=== PATIENT | female | born 1985 | race Caucasian/White ===

== ENCOUNTER 2019-04-17 05:14 | Inpatient (IN) ==
[2019-04-17] MEDS ORDERED: SODIUM CHLORIDE 0.9% 1000ML 2,000 ML IV ONE (05:27)
[2019-04-17] MEDS ORDERED: LORazepam 2 MG/4 ML VIAL IV STA (05:27)
[2019-04-17 06:05] LABS: Basophils # (auto) 0.01 K/uL (0-0.2); Basophils % (auto) 0.1 %; Hematocrit (blood only) 39.3 % (37-47); Hemoglobin 13.5 g/dL (12.0-16.0); Immature Granulocytes # (auto) 0.03 K/uL (0.00-0.02); Immature Granulocytes % (auto) 0.2 %; Lymphocytes # (auto) 0.52 K/uL (1.2-3.4); Lymphocytes % (auto) 3.5 %; Mean Corpuscular Hgb Conc 34.4 g/dL (32-36); Mean Corpuscular Volume 84.5 fL (80-100); Mean Platelet Volume 9.3 fL (7.4-10.4); Monocytes # (auto) 0.33 K/uL (0.11-0.59); Monocytes % (auto) 2.2 %; Neutrophils # (auto) 13.87 K/uL (1.4-6.5); Platelet Count 296 K/uL (130-400); RDW Standard Deviation 43.1 fL (36.4-46.3); Red Blood Count 4.65 M/uL (4.2-5.4); White Blood Count 14.76 K/uL (4.8-10.8)
[2019-04-17] MEDS ORDERED: KETOROLAC 30 MG/ML VIAL IV STA (06:11)
[2019-04-17 06:23] LABS: Alanine Aminotransferase 30 U/L (12-78); Albumin Level 3.6 gm/dl (3.4-5.0); Aspartate Aminotransferase 23 U/L (15-37); BUN Creatinine Ratio 3.8 (10-20); Bilirubin Direct < 0.1 mg/dl (0-0.2); Blood Urea Nitrogen 3 mg/dl (7-18); Calcium 8.9 mg/dl (8.5-10.1); Carbon Dioxide 22 mmol/L (21-32); Chloride 108 mmol/L (98-107); Creatinine Clr Calc Pharmacy 107.7 ml/min; Est GFR (African American) 103.6; Est GFR (Non-African American) 89.4; Glucose 107 mg/dl (70-99); Magnesium 1.8 mg/dl (1.8-2.4); Potassium 3.2 mmol/L (3.5-5.1); Sodium 139 mmol/L (136-145)
[2019-04-17 06:28] LABS: Alkaline Phosphatase 93 U/L (45-117); Bilirubin,Total 0.2 mg/dl (0.2-1); Creatine Kinase 134 U/L (26-192); Total Protein 7.8 gm/dl (6.4-8.2); Troponin I < 0.015 ng/ml (0-0.045)
--- NOTE | 2019-04-17 06:29 | XRay Report ---
XR chest 1V portable CLINICAL HISTORY: seizure, ams COMPARISON STUDY: 02/22/2013 FINDINGS: The cardiac and mediastinal contours are normal. There is no evidence of focal pulmonary co nsolidation. There is no evidence of failure. No pleural effusions are visualized.[ IMPRESSION: No active disease in the chest. ACT 112: Negative or not required by law. Electronically signed by: Billy Villar M.D. 04/17/2019 6:27 AM
--- NOTE | 2019-04-17 06:37 | CT Scan Report ---
CT OF THE HEAD WITHOUT CONTRAST CLINICAL HISTORY: seizure like activity COMPARISON STUDY: No previous studies for comparison. CT DOSE: 614.27 mGy.cm TECHNIQUE: Helical axial images of the head were obtained without IV contrast. Automated exposure con trol was utilized for the study. A dose lowering technique was utilized adhering to the principles o f ALARA. FINDINGS: No acute intracranial hemorrhage, midline shift or mass effect is present. The ventricular system is unremarkable. The basilar cisterns are patent. No extra-axial collections are present. Ther e are no findings to suggest acute dural sinus thrombosis or acute territorial infarct. No significan t calvarial abnormalities are present. Visualized portions of the sinuses and mastoid air cells are c lear. IMPRESSION: No acute intracranial findings. ACT 112: Negative or not required by law. Electronically signed by: Lorenzo Wright M.D. 04/17/2019 6:36 AM
[2019-04-17] MEDS ORDERED: DEXTROSE 5% IV STA (06:42)
[2019-04-17] MEDS ORDERED: LEVETIRACETAM IV STA (06:42)
[2019-04-17 06:45] LABS: Pregnancy Test, Serum Negative (Negative)
[2019-04-17 06:49] LABS: Appearance Urine Cloudy (Clear); Bacteria Urine Automated Negative (Negative); Bilirubin Urine Negative (Negative); Blood Urine Negative (Negative); Color Urine Yellow; Epithelial Cell Urine Auto >30 /lpf (0-5); Glucose Urine UA Negative (Negative); Ketones Urine Trace (Negative); Leukocyte Esterase Urine Negative (Negative); Nitrite Urine Negative (Negative); Protein Urine Negative (Negative); RBC Urine Automated 0-4 /hpf (0-4); Specific Gravity Urine 1.026 (1.000-1.030); Urobilinogen Urine Negative (Negative)
--- NOTE | 2019-04-17 07:17 | Emergency Department Note ---
Entered by Igor Keller acting as a scribe for ED Provider Note Name: Batsheva Estrada Age: 33 Arrives Via: EMS Informant: Nurse, patient CC: Seizure-like activity HPI: The patient is a 33 year old female who presents to the emergency department with complaints of three episodes of seizure-like activity occurring this morning. Per nurse, the patient had a seizure-like episode at [facility]. She states that the patient was alert and oriented when EMS arrived, and the patient refused medical treatment. She notes that the patient then went back to her apartment, turned on all the lights, and then had another episode of seizure-like activity. She reports that this episode lasted for ten minutes. She states that the patient was confused when EMS arrived. She notes that EMS put an IV in, and then the patient had another episode of seizure-like activity. She reports that the patient has no prior seizure history, and she states that the patient is seventeen months clean from heroin. The patient notes that she hurt her left arm when she pulled the IV out. She denies any drug use. HPI limited secondary to AMS. ROS: ROS limited secondary to AMS. Past Medical History: UTI, heroin use Past Surgical History: None Family History: None Social History: Former heroin user Home Medications: Gabapentin Allergies: Diphenhydramine, Penicillin, codeine. Physical: Vitals: BP 128/71, Pulse 113, Resp 23, Temp 98.2 F, O2 Sat 95 Exam: GENERAL: Patient is well appearing and in no acute distress. EYES: No scleral icterus, unremarkable pupils. ENT: Mucous membranes moist, no nasal congestion. NECK: No masses appreciated, no meningismus, trachea is midline. No nuchal rigidity or pain moving neck around. RESPIRATORY: No dyspnea. Clear to auscultation and equal bilaterally. No wheeze, no rhonchi. CARDIOVASCULAR: Regular rhythm and tachycardic. No murmurs, rubs, gallops appreciated. GASTROINTESTINAL: Abdomen soft, non-tender, no peritonitis. Bowel sounds positive. No masses appreciated. BACK: No midline tenderness, no CVA tenderness EXTREMITIES: Normal motion all extremities, no cyanosis, no edema. Old track crump to left AC of arm. NEUROLOGIC: Alert, no acute motor or sensory deficits, no focal weakness, cranial nerves grossly intact. Awake, interactive, with bizarre answers, repetitive questioning at times. SKIN: No rash, no jaundice, no diaphoresis. ED Course: Prior Medical Record, Triage/Nursing Notes, Medications, Allergies reviewed by Me 0527: The patient was evaluated in room C3. A complete history and physical exam was performed. 0610: I reevaluated and updated the patient. She is much more alert and awake. She notes a history of a seizure several years ago; however, she was never formally diagnosed and does not take any seizure medication. She states that she has a moderate headache with photophobia. She denies any neck stiffness, recent fever, and head trauma. She also denies any stimulant use or excessive exhaustion. 0637: I discussed the patient's case with SIDRA Peralta. He suggests admission if the patient is willing. He advises loading the patient with Keppra 500 TID. If the patient is willing to be admitted he suggests obtaining and MRI and EEG. 0645: I rechecked the patient. She states that her headache is improving. She is agreeable to hospitalization for further workup. 0705: Upon reevaluation, the patient is stable. I discussed the findings and the treatment plan with the patient. She expresses agreement and understanding. I spoke with [facility]. She will be evaluated for further management. Vital Signs: reviewed and remarkable for tachy Labs: Reviewed and remarkable for mild leukocytosis Interventions: saline lock, nss bolus 2 L IV, ativan 2mg IV, Keppra 1500mg IV, Toradol 30mg IV Imaging: CHEST X-RAY: X ray results are stated below per my interpretation: Chest: 1 view: No infiltrate, no effusion, normal cardiac border. Radiology results as stated below per my review and the radiologist's interpretation: CT HEAD: No acute intracranial hemorrhage, extra-axial fluid collection, edema, mass effect, or acute cortical infarct. No fracture. The paranasal sinuses and mastoid air cells are clear. Radiologist: Yimi Grullon MD. EKG: Per My Interpretation: Indication AMS: ST 111 bpm, qtc 495. No Ectopy. No Ischemia. No previous EKG for comparison Consults: 0637: I discussed the patient's case with SIDRA Peralta. He suggests admission if the patient is willing. He advises loading the patient with Keppra 500 TID. If the patient is willing to be admitted he suggests obtaining and MRI and EEG. 0705: I reviewed the patient's case with [facility] hospitalist who will evaluate further. Blood pressure: Normal. No Referral necessary Disposition: Hospitalization Differential diagnosis includes etiologies such as infection, hypoglycemia, electrolyte abnormalities, cardiac sources, intracerebral event, trauma, toxicologic, neurologic, as well as others were entertained. Medical Decision Makin y old female with history of previous drug addiction, chronic pain and very remote single seizure. She is on gabapentin only medications. She has had 3 seizures over the last few hours, one of which witnessed by EMS and on arrival here she is post ictal pulling at lines. Given 2mg IV ativan to help with seizure blockade and sent to CT revealing no acute findings. Labs with mild wbc elevation likely secondary to multiple seizures. As she awoke she notes headache which improved with Toradol. She does not have fever no findings of meningitis by examination. I do not feel emergent LP indicated at this time. She was given IV fluids for hydration. After discussion with neuro will bring in to hospital and she was given IV Keppra. Patient comfortable with this plan. Impression: Seizure Guillermo Marcano MD The scribe's documentation has been prepared under my direction and personally reviewed by me in its entirety. I confirm that the note above accurately reflects all work, treatment, procedures, and medical decision making performed by me. 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 [employer] Other Information That Helps Us Care for You: No Feels Safe at Home: Yes Safety Concerns: Feels Safe At This Time Smoking Status: Current every day smoker Tobacco Type: cigarettes ; packs per day: 0.5 ; Cigarettes Per Day: 10 ; Do You Dip or Chew Tobacco: No ; Second Hand Exposure: No ; Tobacco Cessation Education Requested by Patient: No Hx Alcohol Use: Yes (4-5 beers once a week) Hx Substance Use: Yes substance use type: heroin Substance Use Type Other:: history Last Used Substance: Unknown Last Used Substance Other:: Marijuana - reports recent use Results & Data Vital Signs Vital Signs - 24 hr 04/17/19 05:23 04/17/19 05:30 04/17/19 06:00 Temperature 36.8 C Temperature Source Oral Pulse Rate 113 H 110 H 98 H Pulse Rate from SpO2 Sensor 111 H 99 H Respiratory Rate 23 18 19 Respiratory Depth Normal Blood Pressure 128/71 124/74 104/62 Blood Pressure Mean 90 83 73 Pulse Oximetry 95 92 93 Oxygen Delivery Method Room Air Room Air Room Air Sepsis Recent Fever Within 48 Hours No Sepsis New/Unexplained Change in Mental Status No Sepsis Action Taken by Nursing No Action Required 04/17/19 06:30 04/17/19 07:00 04/17/19 07:01 Temperature Temperature Source Pulse Rate 91 H 88 87 Pulse Rate from SpO2 Sensor 91 H 88 88 Respiratory Rate 18 17 15 Respiratory Depth Blood Pressure 121/78 125/78 Blood Pressure Mean 99 92 Pulse Oximetry 97 98 98 Oxygen Delivery Method Room Air Room Air Room Air Sepsis Recent Fever Within 48 Hours Sepsis New/Unexplained Change in Mental Status Sepsis Action Taken by Nursing 04/17/19 07:30 04/17/19 07:31 04/17/19 08:00 Temperature Temperature Source Pulse Rate 92 H 88 92 H Pulse Rate from SpO2 Sensor 91 H 88 92 H Respiratory Rate 18 19 19 Respiratory Depth Blood Pressure 94/69 L 124/81 Blood Pressure Mean 75 106 Pulse Oximetry 98 100 97 Oxygen Delivery Method Room Air Room Air Room Air Sepsis Recent Fever Within 48 Hours Sepsis New/Unexplained Change in Mental Status Sepsis Action Taken by Nursing 04/17/19 08:01 Temperature Temperature Source Pulse Rate 91 H Pulse Rate from SpO2 Sensor 90 Respiratory Rate 17 Respiratory Depth Blood Pressure Blood Pressure Mean Pulse Oximetry 97 Oxygen Delivery Method Room Air Sepsis Recent Fever Within 48 Hours Sepsis New/Unexplained Change in Mental Status Sepsis Action Taken by Longterm Medications Current Medication List: was personally reviewed by me Laboratory Data Attestation: I reviewed the patient's lab results. Result diagrams: 04/17/19 05:49 04/17/19 05:49 Lab Results 04/17/19 04/17/19 04/17/19 Range/Units 05:48 05:48 05:49 WBC 14.76 H (4.8-10.8) K/uL RBC 4.65 (4.2-5.4) M/uL Hgb 13.5 (12.0-16.0) g/dL Hct 39.3 (37-47) % MCV 84.5 (80-100) fL MCH 29.0 (25-34) pg MCHC 34.4 (32-36) g/dL RDW Std Deviation 43.1 (36.4-46.3) fL RDW Coeff of Mary Anne 14.0 (11.5-14.5) % Plt Count 296 (130-400) K/uL MPV 9.3 (7.4-10.4) fL Immature Gran % (Auto) 0.2 % Neut % (Auto) 94.0 % Lymph % (Auto) 3.5 % [place] % (Auto) 2.2 % Eos % (Auto) 0.0 % Baso % (Auto) 0.1 % Immature Gran # (Auto) 0.03 H (0.00-0.02) K/uL Neut # (Auto) 13.87 H (1.4-6.5) K/uL Lymph # (Auto) 0.52 L (1.2-3.4) K/uL [place] # (Auto) 0.33 (0.11-0.59) K/uL Eos # (Auto) 0.00 (0-0.5) K/uL Baso # (Auto) 0.01 (0-0.2) K/uL Sodium (136-145) mmol/L Potassium (3.5-5.1) mmol/L Chloride (98-107) mmol/L Carbon Dioxide (21-32) mmol/L Anion Gap (3-11) BUN (7-18) mg/dl Creatinine (0.6-1.2) mg/dl Est Cr Clr Drug Dosing ml/min Est GFR ( Amer) Est GFR (Non-Af Amer) BUN/Creatinine Ratio (10-20) Glucose (70-99) mg/dl Calcium (8.5-10.1) mg/dl Magnesium (1.8-2.4) mg/dl Total Bilirubin (0.2-1) mg/dl Direct Bilirubin (0-0.2) mg/dl AST (15-37) U/L ALT (12-78) U/L Alkaline Phosphatase (45-117) U/L Total Creatine Kinase (26-192) U/L Troponin I (0-0.045) ng/ml Total Protein (6.4-8.2) gm/dl Albumin (3.4-5.0) gm/dl TSH (0.300-4.500) uIu/ml HCG, Qual (Negative) Urine Color Yellow Urine Appearance Cloudy A (Clear) Urine pH 5.0 (4.5-7.5) Ur Specific [place] 1.026 (1.000-1.030) Urine Protein Negative (Negative) Urine Glucose (UA) Negative (Negative) Urine Ketones Trace H (Negative) Urine Blood Negative (Negative) Urine Nitrite Negative (Negative) Urine Bilirubin Negative (Negative) Urine Urobilinogen Negative (Negative) Ur Leukocyte Esterase Negative (Negative) Urine WBC (Auto) 1-5 (0-5) /hpf Urine RBC (Auto) 0-4 (0-4) /hpf U Hyaline Cast (Auto) 1-5 (0-5) /lpf U Epithel Cells (Auto) >30 H (0-5) /lpf Urine Bacteria (Auto) Negative (Negative) Urine Opiates Screen Neg (Neg) Ur Methadone, Qual Neg (Neg) Urine Barbiturates Neg (Neg) Ur Phencyclidine (PCP) Neg (Neg) U Amphetamin/Meth Scrn Neg (Neg) MDMA (Ecstasy) Screen Neg (Neg) U Benzodiazepines Scrn Neg (Neg) Ur Cocaine Metabolite Neg (Neg) U Marijuana (THC) Screen Pos H (Neg) Ethyl Alcohol mg/dL (0-3) mg/dl 04/17/19 04/17/19 04/17/19 Range/Units 05:49 05:49 05:49 WBC (4.8-10.8) K/uL RBC (4.2-5.4) M/uL Hgb (12.0-16.0) g/dL Hct (37-47) % MCV (80-100) fL MCH (25-34) pg MCHC (32-36) g/dL RDW Std Deviation (36.4-46.3) fL RDW Coeff of Mary Anne (11.5-14.5) % Plt Count (130-400) K/uL MPV (7.4-10.4) fL Immature Gran % (Auto) % Neut % (Auto) % Lymph % (Auto) % [place] % (Auto) % Eos % (Auto) % Baso % (Auto) % Immature Gran # (Auto) (0.00-0.02) K/uL Neut # (Auto) (1.4-6.5) K/uL Lymph # (Auto) (1.2-3.4) K/uL [place] # (Auto) (0.11-0.59) K/uL Eos # (Auto) (0-0.5) K/uL Baso # (Auto) (0-0.2) K/uL Sodium 139 (136-145) mmol/L Potassium 3.2 L (3.5-5.1) mmol/L Chloride 108 H (98-107) mmol/L Carbon Dioxide 22 (21-32) mmol/L Anion Gap 9.0 (3-11) BUN 3 L (7-18) mg/dl Creatinine 0.86 (0.6-1.2) mg/dl Est Cr Clr Drug Dosing 107.7 ml/min Est GFR ( Amer) 103.6 Est GFR (Non-Af Amer) 89.4 BUN/Creatinine Ratio 3.8 L (10-20) Glucose 107 H (70-99) mg/dl Calcium 8.9 (8.5-10.1) mg/dl Magnesium 1.8 (1.8-2.4) mg/dl Total Bilirubin 0.2 (0.2-1) mg/dl Direct Bilirubin < 0.1 (0-0.2) mg/dl AST 23 (15-37) U/L ALT 30 (12-78) U/L Alkaline Phosphatase 93 (45-117) U/L Total Creatine Kinase 134 (26-192) U/L Troponin I < 0.015 (0-0.045) ng/ml Total Protein 7.8 (6.4-8.2) gm/dl Albumin 3.6 (3.4-5.0) gm/dl TSH (0.300-4.500) uIu/ml HCG, Qual Negative (Negative) Urine Color Urine Appearance (Clear) Urine pH (4.5-7.5) Ur Specific [place] (1.000-1.030) Urine Protein (Negative) Urine Glucose (UA) (Negative) Urine Ketones (Negative) Urine Blood (Negative) Urine Nitrite (Negative) Urine Bilirubin (Negative) Urine Urobilinogen (Negative) Ur Leukocyte Esterase (Negative) Urine WBC (Auto) (0-5) /hpf Urine RBC (Auto) (0-4) /hpf U Hyaline Cast (Auto) (0-5) /lpf U Epithel Cells (Auto) (0-5) /lpf Urine Bacteria (Auto) (Negative) Urine Opiates Screen (Neg) Ur Methadone, Qual (Neg) Urine Barbiturates (Neg) Ur Phencyclidine (PCP) (Neg) U Amphetamin/Meth Scrn (Neg) MDMA (Ecstasy) Screen (Neg) U Benzodiazepines Scrn (Neg) Ur Cocaine Metabolite (Neg) U Marijuana (THC) Screen (Neg) Ethyl Alcohol mg/dL < 3.0 (0-3) mg/dl 04/17/19 Range/Units 05:49 WBC (4.8-10.8) K/uL RBC (4.2-5.4) M/uL Hgb (12.0-16.0) g/dL Hct (37-47) % MCV (80-100) fL MCH (25-34) pg MCHC (32-36) g/dL RDW Std Deviation (36.4-46.3) fL RDW Coeff of Mary Anne (11.5-14.5) % Plt Count (130-400) K/uL MPV (7.4-10.4) fL Immature Gran % (Auto) % Neut % (Auto) % Lymph % (Auto) % [place] % (Auto) % Eos % (Auto) % Baso % (Auto) % Immature Gran # (Auto) (0.00-0.02) K/uL Neut # (Auto) (1.4-6.5) K/uL Lymph # (Auto) (1.2-3.4) K/uL [place] # (Auto) (0.11-0.59) K/uL Eos # (Auto) (0-0.5) K/uL Baso # (Auto) (0-0.2) K/uL Sodium (136-145) mmol/L Potassium (3.5-5.1) mmol/L Chloride (98-107) mmol/L Carbon Dioxide (21-32) mmol/L Anion Gap (3-11) BUN (7-18) mg/dl Creatinine (0.6-1.2) mg/dl Est Cr Clr Drug Dosing ml/min Est GFR ( Amer) Est GFR (Non-Af Amer) BUN/Creatinine Ratio (10-20) Glucose (70-99) mg/dl Calcium (8.5-10.1) mg/dl Magnesium (1.8-2.4) mg/dl Total Bilirubin (0.2-1) mg/dl Direct Bilirubin (0-0.2) mg/dl AST (15-37) U/L ALT (12-78) U/L Alkaline Phosphatase (45-117) U/L Total Creatine Kinase (26-192) U/L Troponin I (0-0.045) ng/ml Total Protein (6.4-8.2) gm/dl Albumin (3.4-5.0) gm/dl TSH 0.833 (0.300-4.500) uIu/ml HCG, Qual (Negative) Urine Color Urine Appearance (Clear) Urine pH (4.5-7.5) Ur Specific [place] (1.000-1.030) Urine Protein (Negative) Urine Glucose (UA) (Negative) Urine Ketones (Negative) Urine Blood (Negative) Urine Nitrite (Negative) Urine Bilirubin (Negative) Urine Urobilinogen (Negative) Ur Leukocyte Esterase (Negative) Urine WBC (Auto) (0-5) /hpf Urine RBC (Auto) (0-4) /hpf U Hyaline Cast (Auto) (0-5) /lpf U Epithel Cells (Auto) (0-5) /lpf Urine Bacteria (Auto) (Negative) Urine Opiates Screen (Neg) Ur Methadone, Qual (Neg) Urine Barbiturates (Neg) Ur Phencyclidine (PCP) (Neg) U Amphetamin/Meth Scrn (Neg) MDMA (Ecstasy) Screen (Neg) U Benzodiazepines Scrn (Neg) Ur Cocaine Metabolite (Neg) U Marijuana (THC) Screen (Neg) Ethyl Alcohol mg/dL (0-3) mg/dl Administered Medications Gabapentin (Neurontin) 900 mg PO TID JOSSELYN Stop: 05/17/19 11:59 Last Admin: 04/17/19 21:19 Dose: 900 mg Documented by: [id number] Admin: 04/17/19 12:37 Dose: 900 mg Documented by: [id number] Levetiracetam (Keppra) 500 mg PO TID JOSSELYN Stop: 05/17/19 11:59 Last Admin: 04/17/19 21:19 Dose: 500 mg Documented by: [id number] Admin: 04/17/19 12:37 Dose: 500 mg Documented by: [id number] Mirtazapine (Remeron) 30 mg PO HS JOSSELYN Stop: 05/17/19 20:59 Last Admin: 04/17/19 21:00 Dose: 30 mg Documented by: [id number] Discontinued Medications Acetaminophen (Tylenol) 1,000 mg PO NOW STA Stop: 04/17/19 07:32 Last Admin: 04/17/19 07:39 Dose: 1,000 mg Documented by: [id number] Sodium Chloride (Nss 1000ml) 2,000 mls @ 999 mls/hr IV .Q2H1M ONE Stop: 04/17/19 07:27 Last Infusion: 04/17/19 08:43 Dose: 0 mls/hr Documented by: [id number] Admin: 04/17/19 05:57 Dose: 999 mls/hr Documented by: [id number] Lorazepam (Ativan) 2 mg in 4 mls @ 4 mls/min IV NOW STA Stop: 04/17/19 05:28 Last Admin: 04/17/19 05:56 Dose: 4 mls/min Documented by: [id number] Levetiracetam 1,500 mg/ (Dextrose) 265 mls @ 999 mls/hr IV NOW STA Stop: 04/17/19 06:58 Last Infusion: 04/17/19 07:56 Dose: 0 mls/hr Documented by: [id number] Admin: 04/17/19 07:25 Dose: 999 mls/hr Documented by: [id number] Sodium Chloride (Nss 1000ml) 1,000 mls @ 125 mls/hr IV .Q8H JOSSELYN Stop: 04/17/19 17:44 Last Infusion: 04/17/19 18:37 Dose: 0 mls/hr Documented by: [id number] Admin: 04/17/19 10:28 Dose: 125 mls/hr Documented by: [id number] Ibuprofen (Advil) 400 mg PO NOW ONE Stop: 04/17/19 10:07 Last Admin: 04/17/19 10:28 Dose: 400 mg Documented by: [id number] Ketorolac Tromethamine (Toradol) 30 mg IV NOW STA Stop: 04/17/19 06:12 Last Admin: 04/17/19 06:26 Dose: 30 mg Documented by: [id number] Potassium Chloride (Klor-Con M20) 40 meq PO NOW STA Stop: 04/17/19 08:43 Last Admin: 04/17/19 09:21 Dose: 40 meq Documented by: [id number] Potassium Chloride (Klor-Con M20) 20 meq PO ONE ONE Stop: 04/17/19 17:01 Last Admin: 04/17/19 16:50 Dose: 20 meq Documented by: [id number] Discharge Plan Visit Data *Final* Discharge Date/Time: 04/17/19 08:53 Chief Complaint: Seizure Stated Complaint: SEIZURE ED Provider: Guillermo Marcano Discharge Problem: Seizure Patient Disposition: Admitted As Inpatient Discharge Instructions Interventions: ED Discharge Assessment Last Done: 04/17/19 08:53 The scribe's documentation has been prepared under my direction and personally reviewed by me in its entirety. I confirm that the note above accurately refle cts all work, treatment, procedures, and medical decision making performed by me.
[2019-04-17 07:20] LABS: Amphetamines+Metham, Urine Neg (Neg); Barbiturates, Urine Neg (Neg); Benzodiazepine, Urine Neg (Neg); Cocaine, Urine Neg (Neg); MDMA (Ecstacy), Urine Neg (Neg); Methadone, Urine Neg (Neg); Opiate, Urine Neg (Neg); Phencyclidine, Urine Neg (Neg)
[2019-04-17] MEDS ORDERED: ACETAMINOPHEN 500 MG TAB PO STA (07:31)
[2019-04-17] MEDS ORDERED: POTASSIUM CHLORIDE 20 MEQ TABCR PO STA (08:42)
--- NOTE | 2019-04-17 08:42 | History & Physical Report ---
Date of Service April 17, 2019 Assessment & Plan (1) Seizure: Pt is 33 y/o F with PMH anxiety, depression, PTSD, prior h/o heroin abuse, tobacco use presented to ER with reported seizure like activity occurring at work and at home. Upon ER arrival pt confused and does become more alert and oriented throughout ER course. Pt admits to marijuana use, denies other recent drug abuse. Denies h/o seizure In ER pt afebrile, P: 113 down to 91, R: 23 down to 18, BP: 128/71, 95% on RA. WBC: 14, K: 3.2, glucose: 107, CK: 134, negative HCG. Urine drug screen +marijuana. 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 Unable to complete MRI brain -Neurology consult, ER spoke to Dr Joseph who suggested load with Keppra, Keppra 500mg TID, MRI, EEG -CBC, BMP in am (2) Hypokalemia: K: 3.2 -Replace and monitor (3) Anxiety and depression: (4) PTSD (post-traumatic stress disorder): -Continue mirtazapine, gabapentin for now (5) Tobacco use: -Smoking cessation encouraged -Denies nicotine patch at this time DVT Prophylaxis -low risk - Ambulate Follows with Gilda Willoughby PA-C for routine care Pt was seen and care coordinated with Dr Woods. See addendum History of Present Illness Chief Complaint: Seizure like activity Primary Care Provider: Rcihard Blanco MD Pt is 33 y/o F with PMH anxiety, depression, PTSD, prior h/o heroin abuse, tobacco use presented to ER with c/o seizure. Majority of history obtained from ER staff. Reported that pt had seizure like activity of unknown duration at work last night and at that time refused EMS transport. Reported pt had another ep isode of seizure like activity at home and friend reported tonic clonic like activity for approx 10 minutes. EMS reported pt was post ictal on arrival. Upon arrival to ER pt confused and has become more alert and answering some questions throughout ER course. Pt admits to marijuana use, denies other drug use. According to out patient records pt with h/o heroin abuse in past and recently released from incarceration in 01/2019. Currently pt reports feels tired but denies any other current complaints. Reports her ARANDA that she had reported initially in ER has resolved. Denies history seizures in past. Pt states last took her gabapentin yesterday morning and last had mirtazapine on 04/15/19. Denies misuse or abuse of her prescription medications. Denies fever/chills, diaphoresis, N/V/D/C, dizziness, vision changes, neck pain, CP, SOB, orthopnea, palpitations, cough, sore throat, choking, otalgia, rhinorrhea, abdominal pain, paresthesias, weakness, extremity weakness, extremity edema, rashes, urinary symptoms. Allergies Allergy/AdvReac Type Severity Reaction Status Date / Time diphenhydramine Allergy Severe ANAPHYLAXIS Verified 04/17/19 05:32 Penicillins Allergy Intermediate HIVES Verified 04/17/19 05:32 codeine AdvReac Mild VOMITING Verified 04/17/19 05:32 Home Medications Home Medications Medication Instructions Recorded Confirmed Type gabapentin 1,200 mg PO TID 04/17/19 04/17/19 History mirtazapine 30 mg PO HS 04/17/19 04/17/19 History Past Med/Surg History Medical History Anxiety and depression Breast mass, right (Acute) Heroin addiction (Acute) (Resolved) 2008 PTSD (post-traumatic stress disorder) Tobacco use Surgical History History of delivery Family History Mother Cervical cancer Social History Preferred Language: Kyrgyz Communication Ability: Effective Produce Service Team Member Required: No Beliefs That Will Affect Care: None Current Living Situation: Other Current Living Situation Comment: Roommate current occupational status: employed 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 [employer] Other Information That Helps Us Care for You: No Feels Safe at Home: Yes Safety Concerns: Feels Safe At This Time Smoking Status: Current every day smoker Tobacco Type: cigarettes ; packs per day: 0.5 ; Cigarettes Per Day: 10 ; Do You Dip or Chew Tobacco: No ; Second Hand Exposure: No ; Tobacco Cessation Education Requested by Patient: No Hx Alcohol Use: Yes (4-5 beers once a week) Hx Substance Use: Yes substance use type: heroin Substance Use Type Other:: history Last Used Substance: Unknown Last Used Substance Other:: Marijuana - reports recent use Review of Systems Review of Systems: All systems reviewed & are unremarkable except as noted in HPI & below Physical Exam Physical Exam: General: no acute distress, overweight Head: normocephalic, atraumatic Eyes: PERRL, EOM's intact, conjunctiva non-injected, anicteric ENT: normal inspection external ears, nose, mucous membranes mildly dry Neck: supple, trachea midline, non-tender Lungs: clear, no respiratory distress, no wheezing/rhonchi/rales CV: RRR, no murmur, no pretibial edema Abd: normal BS, soft, non-tender Ext: no cyanosis, no calf tenderness Neuro: A&O x 3, no focal deficits noted, somewhat flat affect Skin: warm, dry Results & Data Vital Signs (Past 12 Hours) Vital Signs Temp Pulse Resp BP Pulse Ox 04/17/19 06:30 91 H 18 121/78 97 04/17/19 06:00 98 H 19 104/62 93 04/17/19 05:30 110 H 18 124/74 92 04/17/19 05:23 36.8 C 113 H 23 128/71 95 Laboratory Results Short CBC 04/17/19 Range/Units 05:49 WBC 14.76 H (4.8-10.8) K/uL Hgb 13.5 (12.0-16.0) g/dL Hct 39.3 (37-47) % Plt Count 296 (130-400) K/uL BMP 04/17/19 05:49 Sodium 139 Potassium 3.2 L Chloride 108 H Carbon Dioxide 22 BUN 3 L Creatinine 0.86 Glucose 107 H Calcium 8.9 Cardiac Enzymes 04/17/19 Range/Units 05:49 Total Creatine Kinase 134 (26-192) U/L Troponin I < 0.015 (0-0.045) ng/ml Liver Function 04/17/19 Range/Units 05:49 Total Bilirubin 0.2 (0.2-1) mg/dl Direct Bilirubin < 0.1 (0-0.2) mg/dl AST 23 (15-37) U/L ALT 30 (12-78) U/L Alkaline Phosphatase 93 (45-117) U/L Albumin 3.6 (3.4-5.0) gm/dl Urine 04/17/19 Range/Units 05:48 Urine Color Yellow Urine Appearance Cloudy A (Clear) Urine pH 5.0 (4.5-7.5) Ur Specific Tiger 1.026 (1.000-1.030) Urine Protein Negative (Negative) Urine Glucose (UA) Negative (Negative) Diagnostic Findings CXR: IMPRESSION: No active disease in the chest. CT HEAD: IMPRESSION: No acute intracranial findings. ECG Rate (beats per minute): 111 Rhythm: sinus tachycardia Supervising Physician Co-Signing Physician Notes I performed a history and physical examination of the patient on 04/17/2019. I have discussed the patient's management with the advanced practitioner. Please refer to the PA-C note for the documented findings and plan of care. The patient has presented with an episode of what is thought to be seizure. The patient does not remember this event. Details as above. On my exam she was having a headache, stated that she was nauseous and that light was bothering her. This sounded like a migraine headache. He does not have any history of such. Continue Keppra and decrease gabapentin as recommended by neurology. Unable to obtain MRI because of the metal stud on her face which she states is permanent and she cannot remove it.
--- OUTSIDE RECORDS SUMMARY | 2019-04-17 09:37 | External Medical Summary | Continuity of Care Document ---
:1985 Author Name Marcella Sharma, Provider Address Unavailable Unavailable , Care Team Providers Name Role Phone Marisol Quijano [email or web address] TASIA [email or web address] Unavailable Unavailable Problems Active medical history not documented Allergies and Adverse Reactions Allergy history not documented Medications Medications not documented Procedures Procedures not documented Immunizations Immunizations not documented Plan of Treatment Planned Observations Planned Goals not documented Results No Known Results Results not documented
--- NOTE | 2019-04-17 09:38 | Neurology Consultation ---
Date of Consultation April 17, 2019 Assessment & Plan (1) Seizure: (2) Anxiety and depression: (3) Heroin addiction: Patient has had 3 seizures over several hours earlier today likely generalized tonic-clonic in nature. She may have bit her tongue but did not have urinary incontinence. She has sore in general and somewhat sleepy although she had Ativan and levetiracetam. Her white count is elevated which could correlate with the generalized tonic-clonic seizures. Patient is a former heroin addict supposedly clean for 17 months now. She is using medical marijuana. She has a history of anxiety and depression and has been stable on Remeron and gabapentin. Etiology of the seizures are not readily apparent. There is a question that she stopped her gabapentin usage yesterday and there may be a withdrawal effect however she must have an underlying tendency to have seizures. She had a flurry of seizures 2 years ago of uncertain etiology. Mirtazapine has a low tendency to cause seizures. Recommendations: 1. Continue levetiracetam 500 milligrams 3 times a day for now 2. Continue gabapentin 900 milligrams 3 times a day and keep mirtazapine 30 milligrams at bedtime. 3. MRI of the brain with without contrast if able but apparently she has an implanted metallic device in her face that supposedly can be removed. I would look into whether this could be removed because I think an MRI of the brain would be very important for this patient. 4. EEG routine Overall I spent a total of 70 minutes with this case including review of records, direct evaluation the patient bedside, and discussing the case with the patient, RN at bedside, and Nida Levine PA-C including differential diagnosis and treatment options. History of Present Illness Reason for Consultation: Patient is a 33-year-old with new onset seizures and other issues. Requesting Physician: Dr. Marcano Attending Physician: Dr. Woods History of Present Illness Patient gives a somewhat disjointed history which may be unreliable. Her girlfriend is present in the room and helps at the history. Apparently the patient had a series of approximately 5 seizures 2 years ago. I am not certain that anything was evaluated and she was not put on any medication. For about 2 years, the patient was injecting heroin every day. After incarceration she has been clean now without illicit drug use for 17 months, apparently. She does use marijuana for medical reasons. She says she has a medical marijuana card. This helps her headaches which she get every day. These are mild bifrontal headaches which started recently. She claims she has never had severe migraines like she has currently. Apparently, she has been on gabapentin 1200 milligrams 3 times a day mirtazapine 30 milligrams at bedtime for quite some time (was on these meds while in nursing home). Apparently, the patient may have skipped her gabapentin April 16. 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 At 0200 today while at work sitting she suddenly had a generalized tonic-clonic seizure. She has no recall of this. EMS came but she refused to go and went home to her apartment. Apparently her roommate saw her have a 2nd generalized tonic-clonic seizure and the ambulance was called. A 3rd seizure occurred while the EMS was inserting an IV. She was given 2 milligrams of Ativan and arrived at our hospital at 0523, with a temperature of 36.8, pulse 113, respiratory rate 23, blood pressure 128/71, and O2 saturation 95 percent. She was described as alert but somewhat confused with bizarre answers and repetitive questioning. By 0610 she was more oriented awake and alert. She developed a bifrontal pounding headache of a generalized nature with photophobia and no nausea or vomiting or sonophobia. CT scan of the head was unremarkable. CBC, Chem profile, and urinalysis were unremarkable. Urine tox screen was positive for marijuana. She was given a 1.5 gram loading dose of levetiracetam. Ketorolac 30 milligrams was given for headache. Currently, she has had no seizures since she has been in the emergency room. She has a pounding bifrontal headache. Allergies Allergy/AdvReac Type Severity Reaction Status Date / Time diphenhydramine Allergy Severe ANAPHYLAXIS Verified 04/17/19 05:32 Penicillins Allergy Intermediate HIVES Verified 04/17/19 05:32 codeine AdvReac Mild VOMITING Verified 04/17/19 05:32 Home Medications Home Medications Medication Instructions Recorded Confirmed Type gabapentin 1,200 mg PO TID 04/17/19 04/17/19 History mirtazapine 30 mg PO HS 04/17/19 04/17/19 History Patient History Medical History Anxiety and depression Breast mass, right (Acute) Heroin addiction (Acute) (Resolved) 2008 PTSD (post-traumatic stress disorder) Tobacco use Surgical History History of delivery Family History Mother Cervical cancer Social History Preferred Language: Kiswahili Communication Ability: Effective Or Assistant Required: No Beliefs That Will Affect Care: None Current Living Situation: Other Current Living Situation Comment: Roommate current occupational status: employed 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 [email or web address] Other Information That Helps Us Care for You: No Feels Safe at Home: Yes Safety Concerns: Feels Safe At This Time Smoking Status: Current every day smoker Tobacco Type: cigarettes ; packs per day: 0.5 ; Cigarettes Per Day: 10 ; Do You Dip or Chew Tobacco: No ; Second Hand Exposure: No ; Tobacco Cessation Education Requested by Patient: No Hx Alcohol Use: Yes (4-5 beers once a week) Hx Substance Use: Yes substance use type: heroin Substance Use Type Other:: history Last Used Substance: Unknown Last Used Substance Other:: Marijuana - reports recent use Review of Systems Constitutional: + fatigue; no fever and no weakness Eyes: + worsening vision; no diplopia and no eye pain Ear, Nose, Mouth, Throat: no ear pain, no tinnitus, no hearing loss, no dizziness, no snoring, no hoarseness and no dysphagia Respiratory: no cough and no dyspnea Cardiovascular: no chest pain, no palpitations and no lightheadedness Gastrointestinal: no abdominal pain, no nausea and no vomiting Genitourinary: no dysuria, no urinary frequency and no urinary incontinence Musculoskeletal: + myalgia; no back pain, no neck pain, no radicular pain and no joint pain Integumentary: no rash and no lesions Neurologic: + headache(s); no gait abnormality, no localized weakness, no generalized weakness, no tingling, no numbness, no tremor(s), no abnormal movements, no abnormal speech, no confusion and no memory loss Psychiatric: + anxiety; no depression, no irritability, no difficulty concentrating, no confusion and no hallucinations Endocrine: + fatigue; no flushing Hematologic / Lymphatic: no easy bleeding and no easy bruising Allergy / Immunological: no urticaria and no problem reported Physical Exam Physical Exam: The patient is right-handed. The patient is sleepy but arousable and became awake, alert, and attentive. Speech is normal without any aphasia or dysarthria. She can name objects, repeat phrases, and has normal spontaneous speech. Mentation and thought processes are reasonably intact, with orientation to person, place and time, and normal fund of knowledge. Attention and concentration are normal. Mood and affect are normal and appropriate. General appearance and grooming are normal. Short and long-term memory are reasonable conversation but I question her answers at times. The discs are sharp with positive venous pulsations bilaterally. There are no exudates, hemorrhages, or blood vessel changes seen. Pupils are 4 mm bilaterally and reactive to light. Extraocular eye muscles are intact without nystagmus. Visual acuity and visual pop seem normal grossly to confrontation. There are no deficits to sensation in the face in all 3 distributions of the fifth cranial nerve bilaterally. Corneal reflexes are positive bilaterally. Facial strength and symmetry was normal bilaterally. Hearing seems normal to whisper and finger rub bilaterally. Palate moves well without asymmetry. There is normal sternocleidomastoid and trapezius (shoulder shrug) strength bilaterally. Tongue is midline with good strength bilaterally. Neck has a full range of motion without discomfort. There are no cervical bruits bilaterally. There are no cranial or ocular bruits. Heart is without murmur. There is a regular rhythm and rate. Cervical, thoracic, and lumbar spine are nontender to palpation. Gait was not tested and stance sitting up was poor. With outstretched arms there is no drift. There are no resting, postural, or action tremors. There is no ataxia with finger to nose testing. There is good facility in the hands. No other abnormal involuntary movements are noted. Motor strength is 5/5 diffusely in the arms bilaterally including deltoids, biceps, triceps, brachioradialis, wrist flexors and extensors, pool lifeguard, and intrinsic hand muscles. Motor strength is 5/5 diffusely in the legs bilaterally including hip flexors, quadriceps, hamstrings, gastrocnemius, tibialis anterior, tibialis posterior, and Peroneii muscles. Toe extensors are normal and there is good bulk in the extensor digitorum brevis muscles bilaterally. The limbs have good tone without rigidity or spasticity. There is no atrophy noted in the muscles. Muscle bulk is normal, there is no tenderness to palpatio n, no myotonia to percussion, and no fasciculations seen. Sensory examination is intact to touch and pin throughout all 4 limbs diffusely. Reflexes are 1/4 in the biceps, triceps, brachioradialis, quadriceps, and Achilles tendons bilaterally. There is no clonus bilaterally. Toes are downgoing with plantar stimulation bilaterally. Peripheral pulses are present and of normal quality distally in all 4 limbs. There is no peripheral edema noted in the limbs. Results & Data Vital Signs (Past 12 Hours) Vital Signs Temp Pulse Resp BP Pulse Ox 04/17/19 08:31 82 23 103/81 98 04/17/19 08:30 85 15 99 04/17/19 08:01 91 H 17 97 04/17/19 08:00 92 H 19 124/81 97 04/17/19 07:31 88 19 100 04/17/19 07:30 92 H 18 94/69 L 98 04/17/19 07:01 87 15 98 04/17/19 07:00 88 17 125/78 98 04/17/19 06:30 91 H 18 121/78 97 04/17/19 06:00 98 H 19 104/62 93 04/17/19 05:30 110 H 18 124/74 92 04/17/19 05:23 36.8 C 113 H 23 128/71 95 PG Care Time/CCT Total # of Minutes Spent Total Time Spent with Patient: Total time spent is greater than 50% in coordination of care (as documented) at patient's floor/unit and/or counseling patient: Coding Level of Care Code 40162 Initial Inpt Care Lvl 3 Diagnoses Seizure R56.9 Anxiety and depression F41.9; F32.9 Heroin addiction F11.20 Time Spent (min) 70
[2019-04-17] MEDS ORDERED: LORazepam 1 MG/2 ML VIAL IV PRN (09:45)
[2019-04-17] MEDS ORDERED: SODIUM CHLORIDE 0.9% 1000ML 1,000 ML IV SCH (09:45)
[2019-04-17] MEDS ORDERED: ACETAMINOPHEN 325 MG TAB PO PRN (09:45)
[2019-04-17] MEDS ORDERED: IBUPROFEN 200 MG TAB PO ONE (10:06)
[2019-04-17] MEDS: GABAPENTIN 300 MG CAP PO SCH ×2 (12:37→21:19)
--- NOTE | 2019-04-17 14:53 | Electrocardiogram Report ---
Test Reason : Blood Pressure : / mmHG Vent. Rate : 111 BPM Atrial Rate : 111 BPM P-R Int : 152 ms QRS Dur : 076 ms QT Int : 364 ms P-R-T Axes : 043 011 031 degrees QTc Int : 495 ms Sinus tachycardia Otherwise normal ECG No previous ECGs available Confirmed by Gonzalez Garza ([id number]) on 04/17/2019 2:53:05 PM Referred By: Confirmed By:Gonzalez Garza
[2019-04-17] MEDS ORDERED: POTASSIUM CHLORIDE 20 MEQ TABCR PO ONE (17:00)
[2019-04-17] MEDS ORDERED: MIRTAZAPINE TAB 15 MG TAB PO SCH (21:00)
[2019-04-18 07:16] LABS: Hematocrit (blood only) 39.8 % (37-47); Mean Corpuscular Hemoglobin 28.6 pg (25-34); Mean Corpuscular Hgb Conc 32.7 g/dL (32-36); Mean Corpuscular Volume 87.5 fL (80-100); Mean Platelet Volume 10.1 fL (7.4-10.4); Platelet Count 264 K/uL (130-400); RDW Coefficient of Variation 14.2 % (11.5-14.5); RDW Standard Deviation 45.3 fL (36.4-46.3); Red Blood Count 4.55 M/uL (4.2-5.4); White Blood Count 7.89 K/uL (4.8-10.8)
[2019-04-18 07:20] LABS: BUN Creatinine Ratio 6.4 (10-20); Calcium 8.7 mg/dl (8.5-10.1)
--- NOTE | 2019-04-18 07:41 | Electroencephalogram ---
EEG Procedure Note Date of Service April 18, 2019 Start / End Times Start Time: 523 End Time: 543 Referring Physician Nida Levine History 33-year-old with history of 3 generalized tonic-clonic seizures April 17. Now on levetiracetam. Home Medication List Home Medications Medication Instructions Recorded Confirmed Type gabapentin 1,200 mg PO TID 04/17/19 04/17/19 History mirtazapine 30 mg PO HS 04/17/19 04/17/19 History Inpatient Medication List Gabapentin (Neurontin) 900 mg PO TID [facility] Stop: 05/17/19 11:59 Last Admin: 04/17/19 21:19 Dose: 900 mg Documented by: [id number] Admin: 04/17/19 12:37 Dose: 900 mg Documented by: [id number] Levetiracetam (Keppra) 500 mg PO TID [facility] Stop: 05/17/19 11:59 Last Admin: 04/17/19 21:19 Dose: 500 mg Documented by: [id number] Admin: 04/17/19 12:37 Dose: 500 mg Documented by: [id number] Mirtazapine (Remeron) 30 mg PO [facility] Stop: 05/17/19 20:59 Last Admin: 04/17/19 21:00 Dose: 30 mg Documented by: [id number] Discontinued Medications Acetaminophen (Tylenol) 1,000 mg PO NOW STA Stop: 04/17/19 07:32 Last Admin: 04/17/19 07:39 Dose: 1,000 mg Documented by: [id number] Sodium Chloride (Nss 1000ml) 2,000 mls @ 999 mls/hr IV .Q2H1M ONE Stop: 04/17/19 07:27 Last Infusion: 04/17/19 08:43 Dose: 0 mls/hr Documented by: [id number] Admin: 04/17/19 05:57 Dose: 999 mls/hr Documented by: [id number] Lorazepam (Ativan) 2 mg in 4 mls @ 4 mls/min IV NOW STA Stop: 04/17/19 05:28 Last Admin: 04/17/19 05:56 Dose: 4 mls/min Documented by: [id number] Levetiracetam 1,500 mg/ (Dextrose) 265 mls @ 999 mls/hr IV NOW STA Stop: 04/17/19 06:58 Last Infusion: 04/17/19 07:56 Dose: 0 mls/hr Documented by: [id number] Admin: 04/17/19 07:25 Dose: 999 mls/hr Documented by: [id number] Sodium Chloride (Nss 1000ml) 1,000 mls @ 125 mls/hr IV .Q8H JOSSELYN Stop: 04/17/19 17:44 Last Infusion: 04/17/19 18:37 Dose: 0 mls/hr Documented by: [id number] Admin: 04/17/19 10:28 Dose: 125 mls/hr Documented by: [id number] Ibuprofen (Advil) 400 mg PO NOW ONE Stop: 04/17/19 10:07 Last Admin: 04/17/19 10:28 Dose: 400 mg Documented by: [id number] Ketorolac Tromethamine (Toradol) 30 mg IV NOW STA Stop: 04/17/19 06:12 Last Admin: 04/17/19 06:26 Dose: 30 mg Documented by: [id number] Potassium Chloride (Klor-Con M20) 40 meq PO NOW STA Stop: 04/17/19 08:43 Last Admin: 04/17/19 09:21 Dose: 40 meq Documented by: [id number] Potassium Chloride (Klor-Con M20) 20 meq PO ONE ONE Stop: 04/17/19 17:01 Last Admin: 04/17/19 16:50 Dose: 20 meq Documented by: [id number] Description This is a 21 electrode EEG with a single channel dedicated to limited EKG. The electrodes were placed in accordance with the International 10-20 system. Interpretation The predominant background activity consists of an irregular 6 Hz activity, of up to 60 mV in amplitude,seen symmetrically distributed over the posterior head regions bilaterally spreading anteriorly. This activity attenuates some with eye-opening and other alerting procedures. There was considerable artifact present throughout most of this recording including eye blink and movement. Much of the recording she had her eyes open which hindered effective interpretation. Photic stimulation was performed and elicited no change in the background activity and no abnormal responses were seen. Hyperventilation was not performed. Throughout the waking portion of the recording, no focal abnormalities or potentially epileptogenic discharges are seen. There was a persistent generalized, mild slowing background activity as noted above. The patient entered the drowsy state from time to time with no further activation. In summary, this EEG was abnormal during wakefulness with mild generalized slowing. No further activation was noted with drowsiness Clinical Correlation The absence of potentially epileptogenic activity does not exclude a seizure disorder, since interictally, EEGs can be normal. The mild generalized slowing is likely secondary to encephalopathy which in this case could be postictal, other etiologies could be considered. [facility] EEG Procedure Codes Indication for Procedure (1) Seizure: Neurology Neurology: [id number] EEG include record awake & drowsy
--- NOTE | 2019-04-18 08:25 | Neurology Progress Note ---
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 She may have bit her tongue, but did not have urinary incontinence. She was sore in general and sleepy and had Ativan and levetiracetam. Her white count was elevated mission which could correlate with the generalized tonic-clonic seizures. Today, CBC was unremarkable. Patient is a former heroin addict, supposedly clean for 17 months now. She is using medical marijuana currently for mood and sleep. She has a history of anxiety and depression and has been relatively stable on Remeron and gabapentin. Etiology of the seizures are not readily apparent. There is a question that she stopped her gabapentin usage yesterday and there may be a withdrawal effect, however she must have an underlying tendency to have seizures. Patient tells me today that she has been quite tired and sleep deprived over the last several days. She had a flurry of seizures 2 years ago, when she was still using her when of uncertain etiology. This coupled with her history of remote cocaine usage would put her at risk for cerebral stroke and other damage. Mirtazapine has a very low tendency to cause seizures. Patient had an EEG this morning which showed some mild slowing in general. There were no focal abnormalities or potentially epileptogenic discharge. This is likely residual postictal effect. On exam she has no encephalopathy, meningeal signs, or focal neurologic findings. Recommendations: 1. Continue levetiracetam at 500 milligrams BID 2. Continue gabapentin 900 milligrams 3 times a day and keep mirtazapine 30 milligrams at bedtime. 3. MRI of the brain with and without contrast if able. Apparently she has an implanted metallic device in her face (a stud that cannot be removed) that supposedly cannot be removed. Patient herself does not think this is magnetic but she is not sure. We will test to see if this is ferrous are not , and if no t, obtain the MRI. 4. I can follow as an outpatient if desired, otherwise I have no further recommendations to make at this time.. Overall I spent a total of 40 minutes with this case including review of records, direct evaluation the patient bedside, and discussing the case with the patient and RN at bedside, and Nida Levine PA-C, including differential diagnosis and treatment options. Subjective Patient feels much better today with no headache at all and no pain. Her arms and legs are feeling better and her balance is good. She does not have dizziness, speech, or mentation issues. She does feel a little bit slow and tired today. EEG showed generalized slowing of a mild nature without focal findings or potentially epileptogenic discharges. CBC had a normal white count today and Chem profile was unremarkable also. Nursing reports no seizures or events since admission and cardiac monitoring showed normal sinus rhythm. Patient tells me that she takes medical marijuana for her mood and for sleep. She tells me that years ago she used cocaine as well as the heroin. She has used cocaine in the last couple of years. The evening and night of her seizures while at work she was very sleep deprived and run down over several days of extra shifts and stress. She did not have a cold or flu at the time. She drank 1 red bull that evening. She did not have any alcohol. She does not take any other supplements. Physical Exam Physical Exam: The patient is awake and alert, with normal speech and communication. Mood is normal and affect is appropriate. Thought processes are much improved today compared to yesterday. There is no facial droop. Extraocular eye muscles are intact without nystagmus. Tongue is midline. Gait is narrow based with good arm swing and turns. Coordination of the arms is normal without tremor or ataxia. Motor strength is 5/5 in all major muscle groups of the arms and legs bilaterally, both proximally and distally. Results & Data Vital Signs (Past 12 Hours) Vital Signs Temp Pulse Pulse Resp BP Pulse Ox 04/18/19 07:18 36.6 C 60 18 105/74 98 04/18/19 03:17 36.4 C L 70 16 105/68 96 04/18/19 00:00 65 04/17/19 22:56 36.5 C 66 16 99/65 L 97 PG Care Time/CCT Total # of Minutes Spent Total Time Spent with Patient: Total time spent is greater than 50% in coordination of care (as documented) at patient's floor/unit and/or counseling patient: Coding Level of Care Code 01643 Subseq Hosp Care Lvl 3 Diagnoses Seizure R56.9 Anxiety and depression F41.9; F32.9 Heroin addiction F11.20
[2019-04-18] MEDS ORDERED: levETIRAcetam 500 MG TAB PO SCH (09:00)
[2019-04-18] MEDS: GABAPENTIN 300 MG CAP PO SCH (09:20)
[2019-04-18] MEDS ORDERED: GADOBUTROL 65ML VIAL IV PRN (10:05)
--- NOTE | 2019-04-18 10:16 | Magnetic Resonance Report ---
MRI OF THE BRAIN WITHOUT AND WITH IV CONTRAST CLINICAL HISTORY: recurrent seizures COMPARISON STUDY: Noncontrast head CT dated 04/17/2019 TECHNIQUE: MRI of the brain was performed from the vertex to the skull base utilizing various T1 and T2 weighted sequences. Following the IV administration of 10 mL of Gadavist contrast, additional enha nced images were obtained. FINDINGS: There is mild artifact secondary to facial piercings which were unable to be removed Sagittal T1, axial diffusion, proton density and T2 weighted axial, coronal FLAIR, and pre and post a xial T1-weighted images were acquired. These were supplemented with post gadolinium coronal T1 weight ed images. No intra or extra-axial mass lesions are visualized. Axial diffusion-weighted images reveal no evidence of acute or subacute infarction. There is no evidence of ventricular dilatation. Proton density T2-weighted and FLAIR images reveal no significant intraparenchymal signal abnormaliti es. Hippocampal formations appear symmetric. There are no abnormal flow voids. There is no evidence of pathologic enhancement. IMPRESSION: Normal MRI of the brain. ACT 112: Negative or not required by law. Electronically signed by: Billy Villar M.D. 04/18/2019 10:14 AM
--- NOTE | 2019-04-18 10:57 | Hospitalist Progress Note ---
Date of Service April 18, 2019 Assessment & Plan (1) Seizure: Per previous attending Dr. Baldemar Lowery's notes: Pt is 33 y/o F with PMH anxiety, depression, PTSD, prior h/o heroin abuse, tobacco use presented to ER with reported seizure like activity occurring at work and at home. Upon ER arrival pt confused and does become more alert and oriented throughout ER course. Pt admits to marijuana use, denies other recent drug abuse. Denies h/o seizure In ER pt afebrile, P: 113 down to 91, R: 23 down to 18, BP: 128/71, 95% on RA. WBC: 14, K: 3.2, glucose: 107, CK: 134, negative HCG. Urine drug screen +marijuana. CT head: no acute changes CXR: no acute changes -In ER given 2L NSS, Ativan 2mg IV, Keppra 1500mg IV, Toradol 30mg IV, Tylenol 1000mg po --Brain MRI: Normal MRI of the brain. EEG: In summary, this EEG was abnormal during wakefulness with mild generalized slowing. No further activation was noted with drowsiness --Evaluated by neurologist, Dr. Joseph, he recommends: Continue Keppra 500 mg twice daily that was started inpatient Continue gabapentin but reduced 900 mg 3 times daily Continue usual mirtazapine 30 mg at bedtime Follow-up with [facility] group neurologist Dr. 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, patient informed about this and she is understanding and agreeable --Case and plan of care discussed with patient in detail and at length Medications explained, precautions also given All questions were answered She verbalized understanding and she was agreeable and comfortable with the plan of care (2) Hypokalemia: K: 3.2 Repleted and resolved (3) Anxiety and depression: (4) PTSD (post-traumatic stress disorder): -Per neurologist recommendations: Continue gabapentin but reduced 900 mg 3 times daily Continue usual mirtazapine 30 mg at bedtime -Patient also utilizes medical marijuana for anxiety -Follow-up close with primary care physician (5) Tobacco use: -Smoking cessation encouraged -Patient denies nicotine patch Disposition Discharge to home Follow-up with primary care physician and neurologist as outlined in discharge instructions Admission and Anticipated Discharge Date Admission Date: April 17, 2019 Subjective Follow-up for seizures Seen with VASU Caputo at the bedside throughout whole encounter Seen resting in bed, comfortable, not in distress States she feels much better overall Denies headache, dizziness, focal neurologic symptoms, confusion Denies pain No shortness of breath, palpitations, chest pain, dizziness Ambulating in the room with no problems States she is back to her baseline, no other symptoms States she is ready would like to be discharged today Review of Systems Review of Systems: All systems reviewed & are unremarkable except as noted in HPI & below Physical Exam Physical Exam: General- oriented x 3, not in distress, speaks in sentences with no effort or accessory muscle use Head- atraumatic Eyes- PERRL, EOMI, anicteric ENT- oropharynx clear Neck- supple, no JVD, no adenopathy, no thyromegaly; carotids +2/2, no bruits appreciated Lungs- clear to auscultation bilaterally, no rales/wheezes Heart- normal rate, regular rhythm; no murmur, no gallop, no rub appreciated Abdomen- normal bowel sounds, nondistended, soft, nontender, no masses or hepatosplenomegaly Extremities- no pretibial edema, no calf tenderness; peripheral pulses intact Neuro- alert, oriented x 3; CN 2-12 grossly intact; motor 5/5 bilaterally;sensation 100% on all extremities; no other gross focal neurologic deficits Skin- warm & dry Results & Data ([facility]) Vital Signs (Past 12 Hours) Vital Signs Temp Pulse Pulse Resp BP Pulse Ox 04/18/19 07:18 36.6 C 60 18 105/74 98 04/18/19 03:17 36.4 C L 70 16 105/68 96 04/18/19 00:00 65 Laboratory Results Laboratory Results - last 24 hr 04/18/19 04/18/19 04/18/19 06:34 06:34 07:34 WBC 7.89 RBC 4.55 Hgb 13.0 Hct 39.8 MCV 87.5 MCH 28.6 MCHC 32.7 RDW Std Deviation 45.3 RDW Coeff of Mary Anne 14.2 Plt Count 264 MPV 10.1 Sodium 141 Potassium TNP Chloride 114 H Carbon Dioxide 22 Anion Gap 6.0 BUN 4 L Creatinine 0.61 Est Cr Clr Drug Dosing 152.0 Est GFR ( Amer) 139.0 Est GFR (Non-Af Amer) 120.0 BUN/Creatinine Ratio 6.4 L Glucose 84 Calcium 8.7 04/18/19 08:34 WBC RBC Hgb Hct MCV MCH MCHC RDW Std Deviation RDW Coeff of Mary Anne Plt Count MPV Sodium Potassium 3.9 D Chloride Carbon Dioxide Anion Gap BUN Creatinine Est Cr Clr Drug Dosing Est GFR ( Amer) Est GFR (Non-Af Amer) BUN/Creatinine Ratio Glucose Calcium Diagnostic Findings Brain MRI: Unrevealing
--- NOTE | 2019-04-18 16:06 | Discharge Summary ---
Date of Service April 18, 2019 Admission HPI Per Admitting Provider Pt is 33 y/o F with PMH anxiety, depression, PTSD, prior h/o heroin abuse, tobacco use presented to ER with c/o seizure. Majority of history obtained from ER staff. Reported that pt had seizure like activity of unknown duration at work last night and at that time refused EMS transport. Reported pt had another episode of seizure like activity at home and friend reported tonic clonic like activity for approx 10 minutes. EMS reported pt was post ictal on arrival. Upon arrival to ER pt confused and has become more alert and answering some questions throughout ER course. Pt admits to marijuana use, denies other drug use. According to out patient records pt with h/o heroin abuse in past and recently released from incarceration in 01/2019. Currently pt reports feels tired but denies any other current complaints. Reports her ARANDA that she had reported initially in ER has resolved. Denies history seizures in past. Pt states last took her gabapentin yesterday morning and last had mirtazapine on 04/15/19. Denies misuse or abuse of her prescription medications. Denies fever/chills, diaphoresis, N/V/D/C, dizziness, vision changes, neck pain, CP, SOB, orthopnea, palpitations, cough, sore throat, choking, otalgia, rhinorrhea, abdominal pain, paresthesias, weakness, extremity weakness, extremity edema, rashes, urinary symptoms. Admission Exam Per Admitting Provider General: no acute distress, overweight Head: normocephalic, atraumatic Eyes: PERRL, EOM's intact, conjunctiva non-injected, anicteric ENT: normal inspection external ears, nose, mucous membranes mildly dry Neck: supple, trachea midline, non-tender Lungs: clear, no respiratory distress, no wheezing/rhonchi/rales CV: RRR, no murmur, no pretibial edema Abd: normal BS, soft, non-tender Ext: no cyanosis, no calf tenderness Neuro: A&O x 3, no focal deficits noted, somewhat flat affect Skin: warm, dry Principal Diagnosis Recurrent seizures, new diagnosis Discharge Exam General- oriented x 3, not in distress, speaks in sentences with no effort or accessory muscle use Head- atraumatic Eyes- PERRL, EOMI, anicteric ENT- oropharynx clear Neck- supple, no JVD, no adenopathy, no thyromegaly; carotids +2/2, no bruits appreciated Lungs- clear to auscultation bilaterally, no rales/wheezes Heart- normal rate, regular rhythm; no murmur, no gallop, no rub appreciated Abdomen- normal bowel sounds, nondistended, soft, nontender, no masses or hepatosplenomegaly Extremities- no pretibial edema, no calf tenderness; peripheral pulses intact Neuro- alert, oriented x 3; CN 2-12 grossly intact; motor 5/5 bilaterally;sensation 100% on all extremities; no other gross focal neurologic deficits Skin- warm & dry Discharge Data Allergies Allergy/AdvReac Type Severity Reaction Status Date / Time diphenhydramine Allergy Severe ANAPHYLAXIS Verified 04/17/19 05:32 Penicillins Allergy Intermediate HIVES Verified 04/17/19 05:32 codeine AdvReac Mild VOMITING Verified 04/17/19 05:32 Consultations 04/17/19 07:34 ED Decision to Admit Stat 04/17/19 09:45 Consult Neurology Routine Ordered Studies 04/17/19 05:27 CT head/brain wo con Urgent FINDINGS: No acute intracranial hemorrhage, midline shift or mass effect is present. The ventricular system is unremarkable. The basilar cisterns are patent. No extra-axial collections are present. There are no findings to suggest acute dural sinus thrombosis or acute territorial infarct. No significant calvarial abnormalities are present. Visualized portions of the sinuses and mastoid air cells are clear. IMPRESSION: No acute intracranial findings. 04/18/19 08:30 MR brain seizure wo/w con Routine FINDINGS: There is mild artifact secondary to facial piercings which were unable to be removed Sagittal T1, axial diffusion, proton density and T2 weighted axial, coronal FLAIR, and pre and post axial T1-weighted images were acquired. These were supplemented with post gadolinium coronal T1 weighted images. No intra or extra-axial mass lesions are visualized. Axial diffusion-weighted images reveal no evidence of acute or subacute infarction. There is no evidence of ventricular dilatation. Proton density T2-weighted and FLAIR images reveal no significant intraparenc hymal signal abnormalities. Hippocampal formations appear symmetric. There are no abnormal flow voids. There is no evidence of pathologic enhancement. IMPRESSION: Normal MRI of the brain. ACT 112: Negative or not required by law. Hospital Course (1) Seizure: Per previous attending Dr. Baldemar Lowery's notes: Pt is 33 y/o F with PMH anxiety, depression, PTSD, prior h/o heroin abuse, tobacco use presented to ER with reported seizure like activity occurring at work and at home. Upon ER arrival pt confused and does become more alert and oriented throughout ER course. Pt admits to marijuana use, denies other recent drug abuse. Denies h/o seizure In ER pt afebrile, P: 113 down to 91, R: 23 down to 18, BP: 128/71, 95% on RA. WBC: 14, K: 3.2, glucose: 107, CK: 134, negative HCG. Urine drug screen +marijuana. CT head: no acute changes CXR: no acute changes -In ER given 2L NSS, Ativan 2mg IV, Keppra 1500mg IV, Toradol 30mg IV, Tylenol 1000mg po --Brain MRI: Normal MRI of the brain. EEG: In summary, this EEG was abnormal during wakefulness with mild generalized slowing. No further activation was noted with drowsiness --Evaluated by neurologist, Dr. Maldonado, he recommends: Continue Keppra 500 mg twice daily that was started inpatient Continue gabapentin but reduced 900 mg 3 times daily Continue usual mirtazapine 30 mg at bedtime Follow-up with [facility] group neurologist Dr. 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, patient informed about this and she is understanding and agreeable --Case and plan of care discussed with patient in detail and at length Medications explained, precautions also given All questions were answered She verbalized understanding and she was agreeable and comfortable with the plan of care (2) Hypokalemia: K: 3.2 Repleted and resolved (3) Anxiety and depression: (4) PTSD (post-traumatic stress disorder): -Per neurologist recommendations: Continue gabapentin but reduced 900 mg 3 times daily Continue usual mirtazapine 30 mg at bedtime -Patient also utilizes medical marijuana for anxiety -Follow-up closely with primary care physician (5) Tobacco use: -Smoking cessation encouraged -Patient denies nicotine patch Disposition Discharge to home Follow-up with primary care physician and neurologist as outlined in discharge instructions Total Time Total Time Spent Total Time Spent (In Minutes): 50 minutes Discharge Plan Discharge Items Patient Disposition: Home - Self-Care Reason For Visit: SEIZURE Discharge Diagnosis: RECURRENT SEIZURES Activity: As commented below Activity Comment: NO HEAVY EXERTION, RESUME ACTIVITY GRADUALLY TOLERATED Lifting: Wait until after follow-up appointment Bathing Comment: NO BATHING IN THE TUB Exercise/Sports: Wait until after follow-up appointment Driving/Machine Use: NO DRIVING UNTIL ALLOWED BY NEUROLOGIST DR. MALDONADO Non-emergency contact: Primary Care Provider Call non-emergency contact if: you have any medication questions and you have a fever Follow-up/Referrals: Louis Maldonado III, MD [Physician] - (PLEASE CALL DR. MALDONADO'S OFFICE AND SET UP A POST HOSPITAL DISCHARGE FOLLOW UP APPOINTMENT IN 2 WEEKS. Spoke with paraffiner and PATO Barry @ Dr. Maldonado's office they both stated that they will have to talk to their hydrochloric manufacturing supervisor and will call patient with appointment.) Richard Blanco MD [Primary Care Provider] - Diet: Regular Addtl Attending Provider Instructions: PLEASE CALL DR. MALDONADO'S OFFICE AND SET UP A POST HOSPITAL DISCHARGE FOLLOW UP APPOINTMENT IN 2 WEEKS. HIS CONTACT INFORMATION IS OUTLINED ABOVE. FOLLOW UP WITH YOUR PRIMARY CARE PROVIDER IJMBO TRUONG ON Tuesday04/20/19 AT 9:05AM. PLEASE MAKE SURE TO FOLLOW UP WITH YOUR PRIMARY CARE PHYSICIAN AND NEUROLOGIST CLOSELY AND REGULARLY. PLEASE REVIEW YOUR NEW MEDICATION LIST AND FOLLOW INSTRUCTIONS CAREFULLY. YOUR NEW MEDICATION IS KEPPRA - 500MG EVERY 12 HOURS- FOR SENIOR SSIS DEVELOPER CONTROL OF SEIZURE DISORDER. GABAPENTIN DOSE IS NOW REDUCED TO 900MG THREE TIMES A DAY. TAKE YOUR MEDICATIONS REGULARLY. CONSULT WITH YOUR DOCTOR FIRST BEFORE TAKING ANY NEW MEDICATIONS. NO DRIVING UNTIL ALLOWED BY THE NEUROLOGIST- DR. MALDONADO. NO OPERATING MACHINERIES, NO BATHING, NO SWIMMING, NO USE OF SHARP OBJECTS/TOOLS. CALL 911 IF WITH ANY RECURRENCE OF SEIZURES. CALL YOUR PRIMARY CARE PHYSICIAN OR NEUROLOGIST IF YOU EXPERIENCE WEAKNESS, DROWSINESS, FEVER/CHILLS, INCREASING PAIN. DRINK PLENTY OF FLUIDS. Pending Studies at Discharge: No Stand-Alone Forms: [facility], Work/School Release (Inpt), Smoking Cessation Medications and DC Order Prescriptions: New gabapentin 300 mg Capsule 900 mg PO TID 14 Days Qty: 126 RF: 0 levetiracetam [Keppra] 500 mg Tablet 500 mg PO Q12H 30 Days Qty: 60 RF: 0 Continued mirtazapine 30 mg tablet 30 mg PO HS RF: 0 Discontinued gabapentin 600 mg tablet 1,200 mg PO TID RF: 0 Discharge Orders: Discharge Order (Routine); Ordered 04/18/19 Ordered By: Tad Whiting Admission Data Admit Date/Time: 04/17/19 08:23 Attending Provider: Tad Whiting Admit Provider: Diana Woods Primary Care Provider: Richard Blanco Other Providers: Diana Woods ; Louis Maldonado III Other Interventions: Discharge Summary Assessment (RN) Last Done: 04/18/19 11:04 DC Date/Time DO NOT enter until pt leaves facility: 04/18/19 12:10
[2019-04-19 06:50] LABS: Marijuana Quant, GCMS Urine 42 ng/mL (<5)
== END 2019-04-18 12:10 | disposition home or self-care (01) | DRG 101 ==
LOC: ED 05:14 → 2S 08:23 → SUATTDRO 08:23 → 2S 08:53